=== PATIENT | female | born 1975 | race Caucasian/White ===

== ENCOUNTER 2017-11-20 09:44 | Outpatient (CLI) | payer OTHER | END 2017-11-20 09:46 | disposition home or self-care (01) | LOC: SONOGRAMA 09:44 | DX: N92.5 Other specified irregular menstruation (principal); N84.0 Polyp of corpus uteri ==

== ENCOUNTER 2018-10-29 06:00 | Day surgery (SDC) | payer OTHER ==
[~2018-10-29] VITALS: Ht 162.6 cm; Wt 68.0 kg
[2018-10-30] MEDS ORDERED: TYLENOL #3 PO (08:07)
== END 2018-10-30 08:00 | disposition home or self-care (01) ==
LOC: CIR.AMB 06:00 → OB/GYN 06:05 → O/R 06:05 → SURH 06:05 → EDSTATUS 07:30 → SURH 07:30 → OB/GYN 14:09 → O/R 14:09 → CIR.AMB 10-30 08:00 → O/R 10-30 11:06 → OB/GYN 10-30 11:06
DX: D25.1 Intramural leiomyoma of uterus (principal); N92.0 Excessive and frequent menstruation with regular cycle; N81.11 Cystocele, midline; N72 Inflammatory disease of cervix uteri; N81.5 Vaginal enterocele

== ENCOUNTER 2024-08-05 10:17 | Outpatient (CLI) | payer OTHER ==
[~2024-08-05 10:17] MED LIST: TYLENOL #3 PO
== END 2024-08-05 10:25 | disposition home or self-care (01) ==
LOC: RAD 10:17
PROVIDERS: ATTEND Ophthalmology
DX: Z01.811 Encounter for preprocedural respiratory examination (principal)